=== PATIENT | male | born 2000 | race Caucasian/White ===

== ENCOUNTER 2021-06-10 10:52 | Emergency (ER) | payer SELFPAY ==
[~2021-06-10] VITALS: Ht 167 cm; Wt 97.5 kg
[2021-06-10] MEDS ORDERED: PRD20T PO (11:08)
[2021-06-10] MEDS ORDERED: ACHD5005 PO (11:08)
--- NOTE | 2021-06-10 11:09 | ED Back Pain ---
General Chief Complaint: Back Problems Stated Complaint: BACK PAIN, R LOWER EXT PAIN Source of Information: Patient Exam Limitations: No Limitations History of Present Illness Date Seen by Provider: Jun 10, 2021 Time Seen by Provider: 11:04 Initial Comments Right-sided low back pain that radiates down his leg to the mid calf. This is been present for 2 days, intolerable since yesterday. He states that as he was walking in his apartment he nearly collapsed because the pain was still severe. No fevers or chills no loss of bowel or bladder control no loss of sensation of his genitals no history of cancer no history of IV drug use. No trauma. Location: Lumbar Spine Timing/Duration: 2-3 Days Associated Symptoms: denies symptoms Allergies and Home Medications Patient Home Medication List Home Medication List Reviewed: Yes Review of Systems Constitutional: see HPI EENTM: see HPI Respiratory: no symptoms reported Cardiovascular: no symptoms reported Genitourinary: no symptoms reported; No decreased output, No discharge, No dysuria, No frequency, No hematuria, No hesitancy Musculoskeletal: see HPI, back pain Skin: no symptoms reported Past Sbnydnb-Awqcbv-Ovjsdm Hx Patient Social History Tobacco Use?: Yes Tobacco type used: Cigarettes Smoking Status: Current Everyday Smoker Substance use?: Yes Substance type: Marijuana Alcohol Use?: No Pt feels they are or have been: No Physical Exam Vital Signs Capillary Refill : Height, Weight, BMI Height: '" Weight: lbs. oz. kg; BMI Method: General Appearance: No Apparent Distress, WD/WN Neck: Full Range of Motion, Normal Inspection Cardiovascular: Regular Rate, Rhythm, Normal Peripheral Pulses Respiratory: Lungs Clear, Normal Breath Sounds, No Accessory Muscle Use, No Respiratory Distress Gastrointestinal: Normal Bowel Sounds, Non Tender, Soft Back: Normal Inspection Extremity: Normal Capillary Refill, Normal Inspection Neurologic/Psychiatric: Alert, Oriented x3 Skin: Normal Color, Warm/Dry Lymphatic: Other (Lower extremity strength 5 out of 5 bilaterally) Departure Communication (Admissions) I offered him some injections for pain control. He states he doesn't like needles and declined. Impression Primary Impression: Lumbar radiculopathy Disposition: HOME, SELF-CARE Condition: Stable Departure-Patient Inst. Decision time for Depature: 11:07 Referrals: NO,LOCAL PHYSICIAN (PCP/Family) Primary Care Physician Patient Instructions: Radiculopathy Add. Discharge Instructions: 1. If the pain sticks around more than a week or so then follow-up with your primary care provider to discuss further evaluation. Return to ER for any concerns. All discharge instructions reviewed with patient and/or family. Voiced understanding. Scripts Hydrocodone/Acetaminophen (Hydrocodone-Acetamin 5-325 mg) 1 Each Tablet 1 TAB PO Q4H PRN for PAIN-MODERATE (5-7), #10 TAB Prov: EMIR LEGER APRN 06/10/21 Prednisone (Prednisone) 20 Mg Tab 40 MG PO DAILY, #8 TAB 0 Refills Prov: EMIR LEGER APRN 06/10/21 Work/School Note: Work Release Form Date Seen in the Emergency Department: Jun 10, 2021 Return to Work: Jun 13, 2021 EMIR LEGER APRN Jun 10, 2021 11:09
[2021-06-10 11:14] VITALS: BP 127/66
== END 2021-06-10 11:10 | disposition home or self-care (01) ==
LOC: ER 10:56
DX: M54.16 Radiculopathy, lumbar region (principal); F17.210 Nicotine dependence, cigarettes, uncomplicated
CPT/HCPCS: 99281

== ENCOUNTER 2021-07-26 11:28 | Emergency (ER) | payer SELFPAY ==
[~2021-07-26] VITALS: Ht 167 cm; Wt 99.7 kg
[~2021-07-26 11:28] MED LIST: ACHD5005 PO; PRD20T PO
[2021-07-26 11:30] VITALS: BP 130/69
--- NOTE | 2021-07-26 12:03 | ED General ---
General Chief Complaint: Cough/Cold/Flu Symptoms Stated Complaint: SORE THROAT/FEVER/CONGESTION Nursing Triage Note: ARRIVED VIA AMB WITH WITH COMPLAINTS OF SORETHORAT, CONGESTION, AND LOW GRADE FEVER STARTING LAST TUE OR TUESDAY. Source of Information: Patient Exam Limitations: No Limitations History of Present Illness Date Seen by Provider: Jul 26, 2021 Time Seen by Provider: 11:40 Initial Comments To ER with a 2 to 3-day history of sore throat, infrequent cough, nasal congestion and rhinorrhea. This began after sharing a vape pen from an individual at work who was ill. Timing/Duration: 2-3 Days Severity: Moderate Allergies and Home Medications Allergies Coded Allergies: Penicillins (Verified Allergy, Severe, RASH, 07/26/21) amoxicillin (Verified Allergy, Severe, RASH, 07/26/21) Patient Home Medication List Home Medication List Reviewed: Yes Chlorpheniramine/Phenylephrine (Eql Sinus-Allergy PE Tablet) 1 Each Tablet, 2 EACH PO Q6H PRN for CONGESTION Prescribed by: EMIR LEGER on 07/26/21 1222 Discontinued Medications Hydrocodone/Acetaminophen (Hydrocodone-Acetamin 5-325 mg) 1 Each Tablet, 1 TAB PO Q4H PRN for PAIN-MODERATE (5-7) Discontinued Reason: No Longer Taking Prescribed by: EMIR LEGER on 06/10/21 1108 Last Action: Discontinued Prednisone (Prednisone) 20 Mg Tab, 40 MG PO DAILY Discontinued Reason: No Longer Taking Prescribed by: EMIR LEGER on 06/10/211107 Last Action: Discontinued Review of Systems Review of Systems Constitutional: see HPI EENTM: see HPI, nose congestion Respiratory: see HPI Cardiovascular: no symptoms reported Genitourinary: no symptoms reported Musculoskeletal: no symptoms reported Skin: no symptoms reported Psychiatric/Neurological: No Symptoms Reported Hematologic/Lymphatic: No Symptoms Reported Immunological/Allergic: no symptoms reported Past Seuoxsf-Ojagkq-Xtpiuz Hx Patient Social History Use of E-Cig and/or Vaping dev: Yes Substance use?: Yes Substance type: Marijuana Physical Exam Vital Signs Vital Signs - First Documented 07/26/21 11:30 Temp 36.6 Pulse 94 Resp 16 B/P (MAP) 130/69 (89) Pulse Ox 99 O2 Delivery Room Air Capillary Refill : Less Than 3 Seconds Height, Weight, BMI Height: '" Weight: lbs. oz. kg; 35.00 BMI Method: General Appearance: No Apparent Distress, WD/WN Eyes: Bilateral Eye Normal Inspection, Bilateral Eye PERRL, Bilateral Eye EOMI HEENT: PERRL/EOMI, TMs Normal, Normal ENT Inspection Neck: Full Range of Motion, Normal Inspection Respiratory: No Accessory Muscle Use, No Respiratory Distress Cardiovascular: Regular Rate, Rhythm, Normal Peripheral Pulses Gastrointestinal: Normal Bowel Sounds, Non Tender, Soft Rectal: Heme Negative Stool, Deferred Extremity: Normal Capillary Refill, Normal Inspection Neurologic/Psychiatric: Alert, Oriented x3 Skin: Normal Color, Warm/Dry Progress/Results/Core Measures Suspected Sepsis SIRS Temperature: Pulse: 94 Respiratory Rate: 16 Blood Pressure 130 /69 Mean: 89 Results/Orders Lab Results Laboratory Tests Test 07/26/21 11:35 Range/Units Influenza Type A (RT-PCR) Not Detected Not Detecte Influenza Type B (RT-PCR) Not Detected Not Detecte SARS-CoV-2 RNA (RT-PCR) Not Detected Not Detecte Group A Streptococcus Screen NEGATIVE NEGATIVE My Orders Orders - EMIR LEGER APRN Covid 19 Inhouse Test (07/26/21 11:33) Rapid Strep A Screen (07/26/21 11:33) Influenza A And B By Pcr (07/26/21 11:33) Vital Signs/I&O 07/26/21 11:30 Temp 36.6 Pulse 94 Resp 16 B/P (MAP) 130/69 (89) Pulse Ox 99 O2 Delivery Room Air Capillary Refill : Less Than 3 Seconds Blood Pressure Mean: 89 Departure Impression Primary Impression: Upper respiratory infection Disposition: 01 HOME, SELF-CARE Condition: Stable Departure-Patient Inst. Decision time for Depature: 12:20 Referrals: NO,LOCAL PHYSICIAN (PCP/Family) Primary Care Physician Patient Instructions: Viral Upper Respiratory Infection, Adult (DC) Add. Discharge Instructions: 1. Medication as directed 2. Follow-up with your doctor next week 3. All discharge instructions reviewed with patient and/or family. Voiced understanding. Scripts Chlorpheniramine/Phenylephrine (Eql Sinus-Allergy PE Tablet) 1 Each Tablet 2 EACH PO Q6H PRN for CONGESTION, #30 TAB Prov: EMIR LEGER APRN 07/26/21 Work/School Note: Work Release Form Date Seen in the Emergency Department: Jul 26, 2021 Return to Work: Jul 27, 2021 EMIR LEGER APRN Jul 26, 2021 12:03
[2021-07-26] MEDS ORDERED: CHLO1TAB94 PO (12:22)
== END 2021-07-26 12:26 | disposition home or self-care (01) ==
LOC: EDUNIT# 11:28 → ER 11:30
DX: J06.9 Acute upper respiratory infection, unspecified (principal); Z20.822 Contact with and (suspected) exposure to COVID-19
CPT/HCPCS: 87430; 87636; 99283

== ENCOUNTER 2021-09-08 23:42 | Emergency (ER) | payer SELFPAY ==
[~2021-09-08 23:42] MED LIST changes: +CHLO1TAB94 PO
[2021-09-09] MEDS ORDERED: ACETAMINOPHEN 500 MG TAB (TYLENOL) PO ONE (00:15)
[2021-09-09] MEDS ORDERED: ONDANSETRON 4 MG (ZOFRAN) ORAL DISSOLVE TAB PO ONE (00:15)
[2021-09-09] MEDS ORDERED: IBUPROFEN 800 MG (MOTRIN) TAB PO ONE (00:15)
--- NOTE | 2021-09-09 00:33 | ED Cough/URI ---
General Chief Complaint: COVID19 Suspect/Confirmed Stated Complaint: FEVER 102,SOB,NAUSEA Nursing Triage Note: TO ED VIA POV AND AMBULATORY TO ROOM 9 NEGATIVE PRESSURE ROOM WITH C/O COUGH, SOA, N/V X2 AT 2100. LAST IBUPROFEN THIS AM. Source: patient History of Present Illness Date Seen by Provider: Sep 09, 2021 Time Seen by Provider: 00:01 Initial Comments PT ARRIVES VIA POV FROM HOME WOKE UP THIS AM FEELING SICK C/O COUGH C/O SHORTNESS OF BREATH C/O SUBJECTIVE FEVER C/O NAUSEA AND VOMITED X 2 NO DIARRHEA NO SORE THROAT NO LOSS OF TASTE/SMELL + HEADACHE + BODY ACHES + FATIGUE TOOK IBUPROFEN THIS AM, OTHERWISE HAS NOT TAKEN ANYTHING ELSE FOR SYMPTOMS PT HAS NOT HAD COVID-19 VACCINE NO KNOWN SICK CONTACTS--LIVES WITH AND BROTHER NO CHRONIC ILLNESSES PT IS A SMOKER--SMOKES CIGARETTES, VAPES AND SMOKES MARIJUANA Allergies and Home Medications Allergies Coded Allergies: Penicillins (Verified Allergy, Severe, RASH, 07/26/21) amoxicillin (Verified Allergy, Severe, RASH, 07/26/21) Patient Home Medication List Home Medication List Reviewed: Yes Benzonatate (Tessalon Perles) 100 Mg Capsule, 100 MG PO TID Prescribed by: BRIE OSMAN on 09/09/21 005 Chlorpheniramine/Phenylephrine (Eql Sinus-Allergy PE Tablet) 1 Each Tablet, 2 EACH PO Q6H PRN for CONGESTION Prescribed by: EMIR LEGER on 07/26/21 1222 Ondansetron (Ondansetron Odt) 4 Mg Tab.rapdis, 4 MG PO Q4H Prescribed by: BRIE OSMAN on 09/09/21 005 Oseltamivir Phosphate (Tamiflu) 75 Mg Cap, 75 MG PO BID Prescribed by: BRIE OSMAN on 09/09/21 005 Review of Systems Review of Systems Constitutional: see HPI, fever EENTM: nose congestion Respiratory: cough, short of breath Cardiovascular: no symptoms reported Gastrointestinal: nausea, vomiting Genitourinary: no symptoms reported Past Xtaafuq-Dfyxyn-Vaukvx Hx Patient Social History Tobacco Use?: Yes Tobacco type used: Cigarettes Smoking Status: Current Someday Smoker Use of E-Cig and/or Vaping dev: Yes E-Cig or Vaping type used: Nicotine Substance use?: Yes Substance type: Marijuana Alcohol Use?: No Past Medical History Surgeries: No Respiratory: No Cardiac: No Neurological: No Genitourinary: No Gastrointestinal: No Musculoskeletal: No Endocrine: No HEENT: No Cancer: No Psychosocial: No Integumentary: No Blood Disorders: No Physical Exam Vital Signs - First Documented 09/09/21 00:00 Temp 38.4 Pulse 85 Resp 16 B/P (MAP) 131/92 (105) Pulse Ox 97 O2 Delivery Room Air Capillary Refill : Less Than 3 Seconds Height: '" Weight: lbs. oz. kg; 35.00 BMI Method: General Appearance: WD/WN, no apparent distress HEENT: PERRL/EOMI, normal ENT inspection, TMs normal, pharynx normal Neck: normal inspection Respiratory: normal breath sounds, no respiratory distress, no accessory muscle use Cardiovascular: no edema, no murmur, tachycardia Gastrointestinal: non tender, soft Extremities: normal inspection, normal capillary refill Neurologic/Psychiatric: no motor/sensory deficits, alert, normal mood/affect, oriented x 3 Skin: normal color, warm/dry Progress/Results/Core Measures Suspected Sepsis SIRS Temperature: Pulse: 85 Respiratory Rate: 16 Blood Pressure 131 /92 Mean: 105 Results/Orders Lab Results Laboratory Tests Test 09/09/21 00:03 Range/Units Influenza Type A (RT-PCR) Detected H Not Detecte Influenza Type B (RT-PCR) Not Detected Not Detecte SARS-CoV-2 RNA (RT-PCR) Not Detected Not Detecte My Orders Orders - BRIE OSMAN DO Influenza A And B By Pcr (09/09/21 00:00) Covid 19 Inhouse Test (09/09/21 00:00) Acetaminophen Tablet (Tylenol Tablet) (09/09/21 00:15) Ibuprofen Tablet (Motrin Tablet) (09/09/21 00:15) Ondansetron Oral Dissolve Tab (Zofran (09/09/21 00:15) Oseltamivir 75 Mg Capsule (Tamiflu 75 (09/09/21 01:00) Rx-Ondansetron Po (Rx-Zofran Po) (09/09/21 00:54) Medications Given in ED Current Medications Medications Dose Ordered Sig/Roxie Route Start Time Stop Time Status Last Admin Dose Admin Acetaminophen 1,000 mg ONCE ONCE PO 09/09/21 00:15 09/09/21 00:16 DC 09/09/21 00:19 1,000 MG Ibuprofen 800 mg ONCE ONCE PO 09/09/21 00:15 09/09/21 00:16 DC 09/09/21 00:19 800 MG Ondansetron HCl 4 mg ONCE ONCE PO 09/09/21 00:15 09/09/21 00:16 DC 09/09/21 00:19 4 MG Oseltamivir Phosphate 75 mg ONCE ONCE PO 09/09/21 01:00 09/09/21 01:01 ME 09/09/21 00:59 75 MG Vital Signs/I&O 09/09/21 09/09/21 00:00 01:05 Temp 38.4 38.1 Pulse 85 89 Resp 16 16 B/P (MAP) 131/92 (105) 141/86 Pulse Ox 97 97 O2 Delivery Room Air Room Air Capillary Refill : Less Than 3 Seconds Blood Pressure Mean: 105 Progress Note : Progress Note PLACED IN ISOLATION ROOM PPE WORN AT ALL TIMES COVID-19 TESTING DONE GIVEN ZOFRAN FOR NAUSEA GIVEN TYLENOL AND MOTRIN FOR FEVER TEMP DOWN TO 100.6 AT DISMISSAL, AND PT FEELS MUCH BETTER AT DISMISSAL NO VOMITING OR DIARRHEA DURING ER STAY NO SIGNIFICANT COUGH NO DYSPNEA NO HYPOXIA Departure Impression Primary Impression: Influenza A Disposition: 01 HOME, SELF-CARE Condition: Stable Departure-Patient Inst. Decision time for Depature: 00:45 Referrals: NO,LOCAL PHYSICIAN (PCP/Family) Primary Care Physician Patient Instructions: Flu, Adult (DC) Add. Discharge Instructions: LOTS OF CLEAR LIQUIDS--WATER, BROTH, JELLO, GATORADE TYLENOL 1 GRAM / MOTRIN 800 MG 4 TIMES A DAY FOR PAIN OR FEVER OVER THE COUNTER ROBITUSSIN DM FOR COUGH FOLLOW UP WITH OF [facility] IN 3-4 DAYS IF NO BETTER, RETURN TO ER IF WORSE All discharge instructions reviewed with patient and/or family. Voiced understanding. Scripts Benzonatate (TESSALON PERLES) 100 Mg Capsule 100 MG PO TID, #30 CAP Prov: BRIE OSMAN K DO 09/09/21 Ondansetron (Ondansetron Odt) 4 Mg Tab.rapdis 4 MG PO Q4H for Nausea/Vomiting, #10 TAB Prov: DAWSONBRIE K DO 09/09/21 Oseltamivir Phosphate (Tamiflu) 75 Mg Cap 75 MG PO BID for 5 Days, #10 CAP Prov: BRIE OSMAN DO 09/09/21 Work/School Note: Work Release Form Date Seen in the Emergency Department: Sep 09, 2021 Return to Work: Sep 16, 2021 BRIE OSMAN DO Sep 09, 2021 00:33
[2021-09-09] MEDS ORDERED: OSLT75C PO (00:53)
[2021-09-09] MEDS ORDERED: BENZ100C18 PO (00:53)
[2021-09-09] MEDS ORDERED: ONDA4TAB11 PO (00:53)
[2021-09-09] MEDS ORDERED: RX-ONDANSETRON 4 MG ODT (ZOFRAN) PPK #4 PO STA (00:54)
[2021-09-09] MEDS ORDERED: OSELTAMIVIR 75 MG (TAMIFLU) CAPSULE PO ONE (01:00)
[2021-09-09 01:05] VITALS: BP 141/86
== END 2021-09-09 01:05 | disposition home or self-care (01) ==
LOC: EDUNIT# 23:42 → ER 23:46
DX: J09.X2 Influenza due to identified novel influenza A virus with other respiratory manifestations (principal); F17.210 Nicotine dependence, cigarettes, uncomplicated; F17.290 Nicotine dependence, other tobacco product, uncomplicated; Z20.822 Contact with and (suspected) exposure to COVID-19
CPT/HCPCS: 87636

== ENCOUNTER 2022-02-03 08:30 | Emergency (ER) | payer SELFPAY ==
[~2022-02-03] VITALS: Ht 167 cm; Wt 104.0 kg
[~2022-02-03 08:30] MED LIST changes: +BENZ100C18 PO; +ONDA4TAB11 PO; +OSLT75C PO
[2022-02-03] MEDS ORDERED: L. A1CAP11 PO (09:35)
[2022-02-03] MEDS ORDERED: ONDA4TAB11 PO (09:35)
--- NOTE | 2022-02-03 09:36 | ED General ---
General Chief Complaint: Head/Cervical Problems Stated Complaint: HIVES,SWEATS,BELTRAN Nursing Triage Note: ARRIVED VIA AMB TO ROOM 08 WITH MULTIPLE COMPLAINTS. PT HAS HAD A PROBLEM WITH HIVES SINCE 2017 AND HAD THIS AM BUT TOOK BENADRYL AND IS NOW FINE. PT STATES HE HAS A HEADACHE AND THE SWEATS WHICH IS NOT NORMAL. Allergies and Home Medications Allergies Coded Allergies: Penicillins (Verified Allergy, Severe, RASH, 07/26/21) amoxicillin (Verified Allergy, Severe, RASH, 07/26/21) Patient Home Medication List Chlorpheniramine/Phenylephrine (Eql Sinus-Allergy PE Tablet) 1 Each Tablet, 2 EACH PO Q6H PRN for CONGESTION Prescribed by: EMIR LEGER on 07/26/21 1222 L. Acidophilus/Pectin, [place] (Acidophilus Capsule) 7.5 Mg (30 Million Cell)-100 Mg Capsule, 2 EACH PO QID Prescribed by: BRIE OSMAN on 02/03/22934 Ondansetron (Ondansetron Odt) 4 Mg Tab.rapdis, 4 MG PO Q4H Prescribed by: BRIE OSMAN on 02/03/22934 Discontinued Medications Benzonatate (Tessalon Perles) 100 Mg Capsule, 100 MG PO TID Discontinued Reason: No Longer Taking Prescribed by: BRIE OSMAN on 09/09/2152 Last Action: Discontinued Ondansetron (Ondansetron Odt) 4 Mg Tab.rapdis, 4 MG PO Q4H Discontinued Reason: No Longer Taking Prescribed by: BRIE OSMAN on 09/09/2152 Last Action: Discontinued Oseltamivir Phosphate (Tamiflu) 75 Mg Cap, 75 MG PO BID Discontinued Reason: No Longer Taking Prescribed by: BRIE OSMAN on 09/09/2152 Last Action: Discontinued Past Zwjtxwz-Lrlqvt-Oljoln Hx Patient Social History Smoking Status: Never a Smoker Substance use?: Yes Substance type: Marijuana Alcohol Use?: No Past Medical History Surgeries: No Respiratory: No Cardiac: No Neurological: No Genitourinary: No Gastrointestinal: No Musculoskeletal: No Endocrine: No HEENT: No Cancer: No Psychosocial: No Integumentary: No Blood Disorders: No Physical Exam Vital Signs Vital Signs - First Documented 02/03/22 08:30 Temp 35.2 Pulse 65 Resp 16 B/P (MAP) 133/85 (101) Pulse Ox 99 O2 Delivery Room Air Capillary Refill : Less Than 3 Seconds Height, Weight, BMI Height: '" Weight: lbs. oz. kg; 37.00 BMI Method: Progress/Results/Core Measures Suspected Sepsis SIRS Temperature: Pulse: 65 Respiratory Rate: 16 Blood Pressure 133 /85 Mean: 101 Results/Orders Lab Results Laboratory Tests Test 02/03/22 08:58 Range/Units Influenza Type A (RT-PCR) Not Detected Not Detecte Influenza Type B (RT-PCR) Not Detected Not Detecte SARS-CoV-2 RNA (RT-PCR) Not Detected Not Detecte My Orders Orders - BRIE OSMAN DO Covid 19 Inhouse Test (02/03/22 08:55) Influenza A And B By Pcr (02/03/22 08:55) Isolation Central Supply Req (02/03/22 08:55) Vital Signs/I&O 02/03/22 08:30 Temp 35.2 Pulse 65 Resp 16 B/P (MAP) 133/85 (101) Pulse Ox 99 O2 Delivery Room Air Capillary Refill : Less Than 3 Seconds Blood Pressure Mean: 101 Departure Impression Primary Impression: Viral syndrome Additional Impression: Person under investigation for COVID-19 Disposition: 01 HOME, SELF-CARE Condition: Stable Departure-Patient Inst. Decision time for Depature: 09:34 Referrals: NO,LOCAL PHYSICIAN (PCP) Primary Care Physician Patient Instructions: COVID-19 Overview, Preventing the Spread of an Infectious Disease, Viral Syndrome (DC) Add. Discharge Instructions: CLEAR LIQUIDS--WATER, BROTH, JELLO, GATORADE BRATS DIET--BANANAS, RICE, APPLESAUCE, TOAST, SALTINES TYLENOL AND MOTRIN NEEDED FOR PAIN OR FEVER FOLLOW UP WITH DRMaria A OF [facility] IN 2-3 DAYS IF NO BETTER All discharge instructions reviewed with patient and/or family. Voiced understanding. Scripts L. Acidophilus/Pectin, [place] (Acidophilus Capsule) 7.5 Mg (30 Million Cell)-100 Mg Capsule 2 EACH PO QID, #40 CAP Prov: BRIE OSMAN DO 02/03/22 Ondansetron (Ondansetron Odt) 4 Mg Tab.rapdis 4 MG PO Q4H for Nausea/Vomiting, #10 TAB Prov: BRIE OSMAN DO 02/03/22 Work/School Note: Local Medical Staff Listing, Work Release Form BRIE OSMAN DO February 03, 2022 09:36
[2022-02-03 09:55] VITALS: BP 113/67
== END 2022-02-03 09:46 | disposition home or self-care (01) ==
LOC: EDUNIT# 08:30 → ER 08:31
DX: B34.9 Viral infection, unspecified (principal); Z20.822 Contact with and (suspected) exposure to COVID-19
CPT/HCPCS: 87636; 99283

== ENCOUNTER 2022-09-19 19:48 | Emergency (ER) | payer SELFPAY ==
[~2022-09-19] VITALS: Ht 167.7 cm; Wt 99.7 kg
[~2022-09-19 19:48] MED LIST changes: +L. A1CAP11 PO
--- NOTE | 2022-09-19 20:19 | ED General ---
General Chief Complaint: General Problems/Pain Stated Complaint: HEADACHE/VOMITING/LEG CRAMPS Nursing Triage Note: PT AMB TO RM 3 WITH CC OF LEG CRAMPS, VOMITING, HEART PALPATATIONS AND BELTRAN THAT BEGAN THIS AM. PT HR AT THIS TIME [id number]. PT STATES TOOK COLD AND FLU MEDICINE EARLIER TODAY BUT DID NOT HELP. Source of Information: Patient Exam Limitations: No Limitations History of Present Illness Date Seen by Provider: Sep 19, 2022 Time Seen by Provider: 20:05 Initial Comments Patient is a 21-year-old male who presents to the emergency department today with a chief complaint of nausea, vomiting too many times to count, feeling rapid heartbeat, leg cramps. Also headache mildly sore throat. He states that he has not gotten a flu shot this year. Took some cold and flu medicine earlier today without any relief of symptoms. States he has a younger brother that is been sick within the last week with similar symptoms. Denies diarrhea, black or bloody stools, no blood in his vomit. Complains of severe leg cramps. No rashes. No known fever. No alcohol today. Does vape. Feels a little lightheaded and dizzy when he stands. All other review of systems reviewed and negative except as stated. Timing/Duration: 1-2 Days Severity: Moderate Associated Systoms: Malaise, Nausea/Vomiting, Weakness, Other (leg cramps) Allergies and Home Medications Allergies Coded Allergies: Penicillins (Verified Allergy, Severe, RASH, 07/26/21) amoxicillin (Verified Allergy, Severe, RASH, 07/26/21) Patient Home Medication List Home Medication List Reviewed: Yes Chlorpheniramine/Phenylephrine (Eql Sinus-Allergy PE Tablet) 1 Each Tablet, 2 EACH PO Q6H PRN for CONGESTION Prescribed by: EMIR LEGER on 07/26/21 1222 L. Acidophilus/Pectin, [place] (Acidophilus Capsule) 7.5 Mg (30 Million Cell)-100 Mg Capsule, 2 EACH PO QID Prescribed by: BRIE OSMAN on 02/03/22 0935 Ondansetron (Ondansetron Odt) 4 Mg Tab.rapdis, 4 MG PO Q4H Prescribed by: BRIE OSMAN on 02/03/22 0935 Ondansetron (Ondansetron Odt) 4 Mg Tab.rapdis, 4 MG SL Q8H PRN for NAUSEA/VOMITING Prescribed by: ASHLY ROUSE on 09/19/222112 Review of Systems Review of Systems Constitutional: see HPI, malaise, weakness EENTM: throat pain (mild) Respiratory: no symptoms reported Cardiovascular: no symptoms reported Gastrointestinal: loss of appetite, nausea, vomiting Genitourinary: no symptoms reported Musculoskeletal: muscle cramps (lower legs) Skin: no symptoms reported Psychiatric/Neurological: Headache All Other Systems Reviewed Negative Unless Noted: Yes Past Gycejnt-Ydovby-Qgkhok Hx Patient Social History Use of E-Cig and/or Vaping dev: Yes E-Cig or Vaping type used: Nicotine Use of E-Cig and/or Vaping Eros: Current Everyday User Substance use?: No Alcohol Use?: No Pt feels they are or have been: No Past Medical History Surgeries: Yes Gallbladder Respiratory: No Cardiac: No Neurological: No Genitourinary: No Gastrointestinal: Yes (S/P STELLA) Gall Bladder Disease Musculoskeletal: No Endocrine: No HEENT: No Cancer: No Psychosocial: No Integumentary: Yes (CHRONIC HIVES SINCE 2017) Blood Disorders: No Physical Exam Vital Signs Vital Signs - First Documented 09/19/22 19:53 Temp 38.3 Pulse 91 Resp 18 B/P (MAP) 146/109 (121) Pulse Ox 98 O2 Delivery Room Air Capillary Refill : Less Than 3 Seconds Height, Weight, BMI Height: '" Weight: lbs. oz. kg; 35.00 BMI Method: General Appearance: No Apparent Distress, WD/WN Eyes: Bilateral Eye Normal Inspection, Bilateral Eye PERRL, Bilateral Eye EOMI HEENT: PERRL/EOMI, Pharynx Normal Neck: Full Range of Motion, Normal Inspection, Non Tender, Supple Respiratory: Lungs Clear, Normal Breath Sounds, No Accessory Muscle Use, No Respiratory Distress Cardiovascular: Regular Rate, Rhythm, Normal Peripheral Pulses, Tachycardia (110; 135 when stood) Gastrointestinal: Non Tender, Soft Extremity: Normal Capillary Refill, Normal Inspection, Normal Range of Motion, Non Tender Skin: Warm/Dry, Pallor Progress/Results/Core Measures Suspected Sepsis SIRS Temperature: Pulse: 91 Respiratory Rate: 18 Blood Pressure 146 /109 Mean: 121 Laboratory Tests 09/19/22 20:18: Creatinine 0.74 Results/Orders Lab Results Laboratory Tests Test 09/19/22 20:18 Range/Units Sodium Level 138 135-145 MMOL/L Potassium Level 3.6 3.6-5.0 MMOL/L Chloride Level 106 98-107 MMOL/L Carbon Dioxide Level 19 L 21-32 MMOL/L Anion Gap 13 5-14 MMOL/L Blood Urea Nitrogen 7 7-18 MG/DL Creatinine 0.74 0.60-1.30 MG/DL Estimat Glomerular Filtration Rate 132 BUN/Creatinine Ratio 9 Glucose Level 94 70-105 MG/DL Calcium Level 10.1 8.5-10.1 MG/DL Influenza Type A Antigen NEGATIVE NEGATIVE Influenza Type B Antigen NEGATIVE NEGATIVE My Orders Orders - ASHLY ROUSE MD Ed Iv/Invasive Line Start (09/19/22 20:19) Basic Metabolic Panel (09/19/22 20:19) Lactated Ringers (Lr 1000 Ml Iv Solution (09/19/22 20:30) Influenza A & B Antigens (09/19/22 20:19) Ondansetron Injection (Zofran Injectio (09/19/22 21:00) Rx-Ondansetron Po (Rx-Zofran Po) (09/19/22 21:03) Vital Signs/I&O 09/19/22 09/19/22 19:53 21:23 Temp 38.3 Pulse 91 90 Resp 18 30 B/P (MAP) 146/109 (121) 150/94 Pulse Ox 98 98 O2 Delivery Room Air Room Air Capillary Refill : Less Than 3 Seconds Blood Pressure Mean: 121 Progress Note : Time: 21:01 Progress Note Patient seen and evaluated, tachycardic moderately dry oral mucosa positive orthostasis. Evaluation today includes physical exam, basic metabolic panel, influenza testing. Treated with 8 of Zofran and a liter of LR. Obtain significant relief. Flu negative, chemistry reassuring. Patient likely has some type of viral stomach flu. Reassured, advised to continue zcuw-uea-zmwueyq remedies, bland diet Tylenol/ibuprofen and electrolyte replacement. No clinical or objective findings to warrant further testing from the emergency department. No findings concerning for sepsis. No clinical indications for imaging such as chest x-ray or CAT scans of the abdomen. Abdomen exam is benign. Feels much better after fluids. Patient given return precautions. He verbalized understanding. All questions are sought and answered. Departure Impression Primary Impression: Stomach flu Disposition: HOME, SELF-CARE Condition: Improved Departure-Patient Inst. Decision time for Depature: 21:10 Referrals: [facility] [place] SHANNON,LOCAL PHYSICIAN (PCP) Primary Care Physician Patient Instructions: Gastritis ED Add. Discharge Instructions: Drink plenty of fluids to stay well hydrated. Electrolyte replacement armenta, gatorade for fluids. Ondansetron (Zofran) for nausea - one tablet every 8 hours. Tylenol and or Ibuprofen as needed for pain/fever. Return to the Emergency Department for any new, concerning or emergent complaints. Scripts Ondansetron (Ondansetron Odt) 4 Mg Tab.rapdis 4 MG SL Q8H PRN for NAUSEA/VOMITING, #10 TAB Prov: ASHLY ROUSE MD 09/19/22 ASHLY ROUSE MD Sep 19, 2022 20:19
[2022-09-19] MEDS ORDERED: LACTATED RINGERS 1,000 ML IV SCH (20:30)
[2022-09-19 20:45] LABS: POTASSIUM 3.6 MMOL/L (3.6-5.0)
[2022-09-19 20:46] LABS: CALCIUM 10.1 MG/DL (8.5-10.1)
[2022-09-19 20:50] LABS: CREATININE SERUM 0.74 MG/DL (0.60-1.30)
[2022-09-19] MEDS ORDERED: ONDANSETRON 4 MG/2 ML (SDV) Z0FRAN IVP ONE (21:00)
[2022-09-19] MEDS ORDERED: RX-ONDANSETRON 4 MG ODT (ZOFRAN) PPK #4 PO STA (21:03)
[2022-09-19] MEDS ORDERED: ONDA4TAB11 SL (21:13)
[2022-09-19 21:23] VITALS: BP 150/94
== END 2022-09-19 21:24 | disposition home or self-care (01) ==
LOC: EDUNIT# 19:48 → ER 19:50
DX: A08.4 Viral intestinal infection, unspecified (principal); G90.A Postural orthostatic tachycardia syndrome [POTS]; F17.290 Nicotine dependence, other tobacco product, uncomplicated; Z87.19 Personal history of other diseases of the digestive system; Z28.310 Unvaccinated for COVID-19
CPT/HCPCS: 36415; 80048; 87804; 99281

== ENCOUNTER 2022-12-18 23:32 | Emergency (ER) | payer SELFPAY ==
[~2022-12-18] VITALS: Ht 167 cm; Wt 100.0 kg
[~2022-12-18 23:32] MED LIST changes: +ONDA4TAB11 SL
[2022-12-18 23:42] VITALS: BP 97/80
--- NOTE | 2022-12-18 23:52 | ED Lower Extremity ---
General Chief Complaint: Trauma-Non Activation Stated Complaint: BURN RIGHT FOOT Nursing Triage Note: PT REPORTS SPILLING BOILING HOT WATER ON BOTH OF HIS FEET WHILE AT WORK. BLISTERS PRESENT. Source: patient Exam Limitations: no limitations History of Present Illness Date Seen by Provider: Dec 18, 2022 Time Seen by Provider: 23:33 Initial Comments 22-year-old male with no pertinent past medical history coming in after he spilled a pot of hot water onto his right foot while at work earlier today shortly prior to arrival. He had a shoe and sock on, immediately kicked him off, and noticed a burn to the top of his right foot. Came here shortly after. His tetanus is up-to-date. Otherwise denying any other acute complaints other than the moderate burning pain to his right foot. He has not taken anything for the pain as of yet. Allergies and Home Medications Allergies Coded Allergies: Penicillins (Verified Allergy, Severe, RASH, 07/26/21) amoxicillin (Verified Allergy, Severe, RASH, 07/26/21) Patient Home Medication List Home Medication List Reviewed: Yes Chlorpheniramine/Phenylephrine (Eql Sinus-Allergy PE Tablet) 1 Each Tablet, 2 EACH PO Q6H PRN for CONGESTION Prescribed by: EMIR LEGER on 07/26/21 1222 L. Acidophilus/Pectin, [place] (Acidophilus Capsule) 7.5 Mg (30 Million Cell)-100 Mg Capsule, 2 EACH PO QID Prescribed by: BRIE OSMAN on 02/03/22 0935 Ondansetron (Ondansetron Odt) 4 Mg Tab.rapdis, 4 MG PO Q4H Prescribed by: BRIE OSMAN on 02/03/22 0935 Ondansetron (Ondansetron Odt) 4 Mg Tab.rapdis, 4 MG SL Q8H PRN for NAUSEA/VOMITING Prescribed by: ASHLY ROUSE on 09/19/222112 Review of Systems Constitutional: No fever EENTM: no symptoms reported Respiratory: no symptoms reported Cardiovascular: no symptoms reported Gastrointestinal: no symptoms reported Genitourinary: no symptoms reported Musculoskeletal: no symptoms reported Skin: see HPI Past Mfpfuzg-Gelclv-Wbqjzr Hx Patient Social History Tobacco Use?: Yes Tobacco type used: Cigarettes Use of E-Cig and/or Vaping dev: Yes E-Cig or Vaping type used: Nicotine Past Medical History Surgeries: Yes Gallbladder Respiratory: No Cardiac: No Neurological: No Genitourinary: No Gastrointestinal: Yes (S/P STELLA) Gall Bladder Disease Musculoskeletal: No Endocrine: No HEENT: No Cancer: No Psychosocial: No Integumentary: Yes (CHRONIC HIVES SINCE 2017) Blood Disorders: No Physical Exam Vital Signs Vital Signs - First Documented 12/18/22 23:42 Temp 36.7 Pulse 64 Resp 18 B/P (MAP) 97/80 (86) Pulse Ox 99 O2 Delivery Room Air Capillary Refill : Less Than 3 Seconds Height, Weight, BMI Height: '" Weight: lbs. oz. kg; 35.00 BMI Method: General Appearance: WD/WN, no apparent distress HEENT: PERRL/EOMI, normal ENT inspection, pharynx normal Neck: non-tender, full range of motion, supple, normal inspection Cardiovascular: regular rate, rhythm, no edema, no murmur Respiratory: chest non-tender, lungs clear, normal breath sounds, no respiratory distress, no accessory muscle use Gastrointestinal: normal bowel sounds, non tender, soft; No distended, No guarding Feet: right foot other (Less than 1% partial-thickness burn with some blistering to the top of the right foot mostly over the right big toe, neurovascularly intact to the extremity, the burn does not go circumferential) Neurologic/Tendon: normal sensation, normal motor functions, normal tendon functions Neurologic/Psychiatric: no motor/sensory deficits, alert, normal mood/affect Skin: normal color, warm/dry Progress/Results/Core Measures Results/Orders My Orders Orders - IRMA COBB MD Ibuprofen Tablet (Motrin Tablet) (12/19/22 00:00) Hydrocodone/Apap 5/325 Tablet (Lortab 5 (12/19/22 00:00) Rx-Hydrocodone/Apap 5-325 Mg (Rx-Vicodin (12/19/22 00:00) Vital Signs/I&O 12/18/22 23:42 Temp 36.7 Pulse 64 Resp 18 B/P (MAP) 97/80 (86) Pulse Ox 99 O2 Delivery Room Air Blood Pressure Mean: 86 Progress Progress Note : Progress Note 22-year-old male presenting for less than 1% partial-thickness burn with blistering to the top of his right foot. ABCs were intact and vitals are stable on presentation. Tetanus is up-to-date. Given hydrocodone and ibuprofen here for pain. Antibiotic ointment was placed in the wound and it was covered. He will get a take-home pack of hydrocodone, otherwise should follow-up with his PCP. I believe he is otherwise stable for discharge with outpatient follow-up. He was sent home with strict return precautions Departure Impression Primary Impression: Partial thickness burn of right foot Qualified Codes: T25.221A - Burn of second degree of right foot, initial encounter Disposition: 01 HOME, SELF-CARE Condition: Stable Departure-Patient Inst. Decision time for Depature: 23:55 Referrals: NO,LOCAL PHYSICIAN (PCP/Family) Primary Care Physician Patient Instructions: Minor Skin Mcgraw ED Add. Discharge Instructions: Fortunately this is a partial-thickness burn that is less than 1% of your total body surface area which is something that would heal well. The blister may pop, or you can pop it with a clean instrument. Cover the wound and bacitracin which is an antibiotic, and you can get gddn-erp-mmqrjhr and keep it covered with clean gauze for at least a week or until the blistering heals. Take ibuprofen and/or Tylenol as needed for pain. Will be sent home with a couple hydrocodone which she can take in moments of extreme pain. Work/School Note: Work Release Form Date Seen in the Emergency Department: Dec 18, 2022 Return to Work: Dec 19, 2022 Restrictions: No Restrictions IRMA COBB MD Dec 18, 2022 23:52
[2022-12-19] MEDS ORDERED: HYDROcodone/APAP 5 MG/325 MG (LORTAB) TAB PO ONE
[2022-12-19] MEDS ORDERED: IBUPROFEN 600 MG (MOTRIN) TAB PO ONE
== END 2022-12-19 00:07 | disposition home or self-care (01) ==
LOC: EDUNIT# 23:32 → ER 23:37
DX: T25.221A Burn of second degree of right foot, initial encounter (principal); T31.0 Burns involving less than 10% of body surface; F17.210 Nicotine dependence, cigarettes, uncomplicated; F17.290 Nicotine dependence, other tobacco product, uncomplicated; Z28.310 Unvaccinated for COVID-19; X12.XXXA Contact with other hot fluids, initial encounter; Y92.59 Other trade areas as the place of occurrence of the external cause; Y99.0 Civilian activity done for income or pay
CPT/HCPCS: 99283

== ENCOUNTER 2023-04-02 23:26 | Emergency (ER) | payer SELFPAY ==
--- NOTE | 2023-04-02 23:48 | ED Integumentary General ---
General Chief Complaint: Skin/Wound Problems Stated Complaint: RT HAND BURN History of Present Illness Date Seen by Provider: Apr 02, 2023 Time Seen by Provider: 23:48 Allergies and Home Medications Allergies Coded Allergies: Penicillins (Verified Allergy, Severe, RASH, 07/26/21) amoxicillin (Verified Allergy, Severe, RASH, 07/26/21) Patient Home Medication List Chlorpheniramine/Phenylephrine (Eql Sinus-Allergy PE Tablet) 1 Each Tablet, 2 EACH PO Q6H PRN for CONGESTION Prescribed by: EMIR LEGER on 07/26/21 1222 Ibuprofen (Ibuprofen) 800 Mg Tablet, 800 MG PO Q6H PRN for PAIN-MILD Prescribed by: BRIE OSMAN on 04/02/23 2358 L. Acidophilus/Pectin, [place] (Acidophilus Capsule) 7.5 Mg (30 Million Cell)-100 Mg Capsule, 2 EACH PO QID Prescribed by: BRIE OSMAN on 02/03/22 0935 Ondansetron (Ondansetron Odt) 4 Mg Tab.rapdis, 4 MG PO Q4H Prescribed by: BRIE OSMAN on 02/03/22 0935 Ondansetron (Ondansetron Odt) 4 Mg Tab.rapdis, 4 MG SL Q8H PRN for NAUSEA/VOMITING Prescribed by: ASHLY ROUSE on 09/19/223 Past Etuxpjx-Zopjvf-Ycpglw Hx Patient Social History Use of E-Cig and/or Vaping dev: Yes E-Cig or Vaping type used: Nicotine Use of E-Cig and/or Vaping Eros: Current Everyday User Substance use?: Yes Substance type: Marijuana Substance frequency: Several times a month Alcohol Use?: No Pt feels they are or have been: No Past Medical History Surgeries: Yes Gallbladder Respiratory: No Cardiac: No Neurological: No Genitourinary: No Gastrointestinal: Yes (S/P STELLA) Gall Bladder Disease Musculoskeletal: No Endocrine: No HEENT: No Cancer: No Psychosocial: No Integumentary: Yes (CHRONIC HIVES SINCE 2017) Blood Disorders: No Physical Exam Vital Signs Vital Signs - First Documented 04/02/23 23:38 Pulse 62 Resp 18 B/P (MAP) 132/84 (100) Pulse Ox 100 O2 Delivery Room Air Capillary Refill : Progress/Results/Core Measures Results/Orders My Orders Orders - BRIE OSMAN DO Dipht,Pertuss(Acell),Tet Adult (Boostrix (04/03/23 00:00) Rx-Mupirocin 2% Oint (Rx-Bactroban) (04/02/23 23:52) Ibuprofen Tablet (Motrin Tablet) (04/03/23 00:00) Acetaminophen Tablet (Tylenol Tablet) (04/03/23 00:00) Wound Dressing-Ed (04/02/23 23:52) Medications Given in ED Current Medications Medications Dose Ordered Sig/Roxie Route Start Time Stop Time Status Last Admin Dose Admin Acetaminophen 1,000 mg ONCE ONCE PO 04/03/23 00:00 04/03/23 00:01 DC 04/03/23 00:04 1,000 MG Diphtheria/ Tetanus/Acell Pertussis 0.5 ml ONCE ONCE IM 04/03/23 00:00 04/03/23 00:01 DC 04/03/23 00:04 0.5 ML Ibuprofen 800 mg ONCE ONCE PO 04/03/23 00:00 04/03/23 00:01 DC 04/03/23 00:04 800 MG Vital Signs/I&O 04/02/23 23:38 Pulse 62 Resp 18 B/P (MAP) 132/84 (100) Pulse Ox 100 O2 Delivery Room Air Departure Impression Primary Impression: Partial thickness burn of right ring finger Additional Impressions: Partial thickness burn of right middle finger Oqovfowgde-gyggnrzaa-bijgkjq (DPT) vaccination administered at current visit Disposition: HOME, SELF-CARE Condition: Stable Departure-Patient Inst. Decision time for Depature: 23:55 Referrals: KEATON GALVAN,LOCAL PHYSICIAN (PCP) Primary Care Physician Patient Instructions: Skin Mcgraw (DC), Tdap (Tetanus, Diphtheria, Pertussis) Vaccine CDC Vaccine Information Statement (VIS) Add. Discharge Instructions: CLEAN TWICE A DAY WITH ANTIBACTERIAL SOAP AND WATER, APPLY ANTIBIOTIC OINTMENT AND FRESH DRESSING TWICE A DAY APPLY COLD COMPRESSES TO THE AREAS AT 20 MINUTE INTERVALS TYLENOL 1 GRAM 4 TIMES A DAY FOR PAIN FOLLOW UP WITH DR. GALVAN NEEDED IF YOU HAVE ANY PROBLEM All discharge instructions reviewed with patient and/or family. Voiced understanding. Scripts Ibuprofen (Ibuprofen) 800 Mg Tablet 800 MG PO Q6H PRN for PAIN-MILD, #20 TAB Prov: BRIE OSMAN DO 04/02/23 Work/School Note: Work Release Form Date Seen in the Emergency Department: Apr 02, 2023 Return to Work: Apr 08, 2023 BRIE OSMAN DO Apr 02, 2023 23:48
[2023-04-02] MEDS ORDERED: RX-MUPIROCIN (BACTROBAN) 2% OINT 22 GM TUBE TOP STA (23:52)
[2023-04-02] MEDS ORDERED: IBUP-1780 PO (23:58)
[2023-04-03] MEDS ORDERED: TETANUS,DIPTH,PERTUSS P/F (BOOSTRIX) 0.5 ML VIAL IM ONE
[2023-04-03] MEDS ORDERED: ACETAMINOPHEN 500 MG TAB (TYLENOL) PO ONE
[2023-04-03] MEDS ORDERED: IBUPROFEN 800 MG (MOTRIN) TAB PO ONE
[2023-04-03 00:17] VITALS: BP 132/84
== END 2023-04-03 00:24 | disposition home or self-care (01) ==
LOC: EDUNIT# 23:26 → ER 23:29
DX: T23.231A Burn of second degree of multiple right fingers (nail), not including thumb, initial encounter (principal); T65.91XA Toxic effect of unspecified substance, accidental (unintentional), initial encounter; F17.290 Nicotine dependence, other tobacco product, uncomplicated; Z23 Encounter for immunization; Z28.310 Unvaccinated for COVID-19
CPT/HCPCS: 90715; 99283